=== PATIENT | female | born 1950 | race Caucasian/White ===

== ENCOUNTER 2024-11-11 19:35 | Emergency (ER) | payer MEDICARE, SELFPAY ==
[2024-11-11] VITALS (28 sets, daily range): BP systolic 134–152; BP diastolic 70–83; PULSE 58–92; RESP 8–20; TEMP 36.9; O2SAT 87–100
[2024-11-11 20:05] LABS: Glucose Point of Care 99 mg/dl (65-105)
[2024-11-11 20:58] LABS: Basophils Percent Auto 0.4 % (0.2-1.2); Eosinophils Percent Auto 0.4 % (0-4.4); Hematocrit 39.1 % (37.0-47.0); Hemoglobin 12.9 g/dL (12.0-15.0); Immature Granulocyte Absolute 0.04 K/mm3 (0.00-0.031); Immature Granulocyte Percent A 0.4 % (0-0.5); Lymphocytes Absolute Auto 1.81 K/mm3 (0.9-3.2); Lymphocytes Percent Auto 16.2 % (18.3-44.2); Mean Corpuscular Hemoglobin 29.7 pg (26-34); Mean Corpuscular Volume 90.1 fl (80-100); Mean Platelet Volume 9.6 fl (7.4-10.4); Monocytes Absolute Auto 1.3 K/mm3 (0.1-0.6); Monocytes Percent Auto 11.8 % (2.6-8.5); Neutrophils Absolute Auto 7.9 K/mm3 (1.3-6.7); Neutrophils Percent Auto 70.8 % (45.5-73.1); Platelet Count Result 263 k/mm3 (150-375); Red Blood Count 4.34 M/mm3 (4.2-5.4); White Blood Count 11.1 K/mm3 (4.5-10.0)
[2024-11-11 21:13] LABS: Alanine Aminotransferase 20 U/L (6-35); Albumin Level 4.2 g/dL (3.5-5.1); Alkaline Phosphatase 96 U/L (38-126); Anion Gap 10 mmol/L (4-12); Aspartate Amino Transferase 35 U/L (14-36); Bilirubin,Total 0.8 mg/dL (0.2-1.3); Blood Urea Nitrogen 22 mg/dL (7-17); Calcium 9.5 mg/dL (8.4-10.2); Carbon Dioxide 27 mmol/L (22-30); Chloride 99 mmol/L (98-107); Estimated CRCL calculation 61 ml/min; Estimated Glomerular Filt Rate > 60; Glucose 113 mg/dL (65-110); Lactic Acid Reflex 1.5 mmol/L (0.7-2.0); Magnesium 2.1 mg/dL (1.6-2.3); Potassium 3.8 mmol/L (3.4-5.0); Sodium 136 mmol/L (137-145)
[2024-11-11 21:34] LABS: Influenza A QL RT-PCR Negative (Negative); Influenza B QL RT-PCR Negative (Negative); RSV RNA, RT-PCR Negative (Negative); SARS-CoV-2 RNA PCR Negative (Negative)
[2024-11-11] MEDS: SODIUM CHLORIDE 0.9% IV 1,000 ML 999 ML IV CONT (22:24)
--- NOTE | 2024-11-11 22:35 | PC.NURSE ---
while obtaining straight cath the patient was actively moving all four limbs, and speaking clearly. patient stated repeatedly rebuke you in the name of chas
[2024-11-11 22:42] LABS: Add Urine Microscopic? YES; Appearance Urine Clear (Clear); Bacteria Urine None Seen /hpf; Bilirubin Urine Negative (Negative); Blood Urine 1+ (Negative); Color Urine Yellow (Yellow); Glucose Urine UA Negative (Negative); Ketones Urine 1+ mg/dL (Negative); Leukocyte Esterase Ur Negative LEU/UL (Negative); Nitrate Urine Negative (Negative); Non Pathogenic Casts 0-2; Protein Urine Trace mg/dL (Negative); Specific Grav Ur 1.044 (1.001-1.035); Squamous Epithelial Cell Urine None Seen /hpf (Few); WBC Urine 0-5 /hpf (0-3)
[2024-11-11] MEDS: SODIUM CHLORIDE 0.9% IV 1,000 ML 100 ML IV CONT (23:26)
--- NOTE | 2024-11-11 23:31 | ED.AMS ---
HPI - Altered Mental Status General Chief Complaint: Altered Mental Status Stated Complaint: ALTERED MENTAL STATUS Time Seen by Provider: 11/11/24 19:47 History of Present Illness HPI narrative: Patient is a 74-year-old female who presents to the emergency department this evening accompanied by her and 2 daughters with concern for stroke-like symptoms. Per EMS and family members, patient has past medical history of CATASIL syndrome and follows up with neurologist through [facility] at [facility]. It is unclear when patient's symptoms started, family members report that patient started complaining of a migraine headache with left-sided sensory deficit and weakness reportedly 3-4 days ago. When asked if this is new, family members state that patient 12 to get the specific neuro symptoms with her migraines which is associated with her catasil syndrome which is precipitated by dehydration and stress. Patient received some disturbing news which led her to go into an alcohol binge. Family members initially thought that the migraine was due to her being hungover and dehydrated as she drank half a bottle of whiskey on Wednesday. Upon arrival to the emergency department, patient was complaining of left sided visual deficits and family member states that this is new. Discussion with tPA with family members was initiated at this time, however, patient's daughter states that given her catasil syndrome which affects the blood vessels in the brain, her neurologist strongly advised against her ever receiving tPA as the benefits do not outweigh the risk of conversion into hemorrhagic stroke. Initially, patient was given an air score of 4 mainly due to left-sided weakness and not recalling the mom current month, however, on repeat assessment, patient is moving all 4 extremities with strong equal shovel operator strength in all extremities and intact sensation with repeat any of score of 0. Patient's speech has been clear although family member states that earlier in the evening they noticed some slurring of the speech but states that now her speech is back to her baseline. Patient is super anxious and yelling stating that she does not want to and she wants her daughter to keep her alive for ever and changes her mind son states that she does not want to stay alive for ever. She is requesting a Toradol shot for lumbar back pain. Family members did state that the patient had a fall yesterday around 11:00 p.m., patient did not hit her head. Patient does take Plavix, no aspirin or any blood thinners, just the anti-platelet according to family members. Related Data Allergies Allergy/AdvReac Type Severity Reaction Status Date / Time No Known Allergies Allergy Verified 11/12/24 00:11 Review of Systems Review of Systems: All systems are reviewed and are negative unless stated otherwise in the HPI. Exam Narrative: General: Alert, awake, afebrile, in no acute distress. HEENT: PERRL, no rhinorrhea, no post nasal drip, oropharynx clear. Neck: Trachea midline, no JVD, no lymphadenopathy. Cardiovascular: Regular rate and rhythm, no murmurs, rubs or gallops, no peripheral edema. Respiratory: Clear to auscultation bilaterally, no tachypnea, no wheezing, no rhonchi, no rubs, no respiratory distress. Abdomen: Soft, nontender, nondistended, no rebound, no guarding, no peritoneal signs. Musculoskeletal: No joint swelling or deformity, normal muscle tone. Skin: No rashes or petechia, no signs of infection. Psychiatric: Alert and oriented, normal behavior and judgment for situation. Neurological: Alert and oriented to person, place, and situation. Follows most commands, difficult to direct but is moving all 4 extremities spontaneously, withdraws to pain all 4 extremities, intact sensation in all 4 extremities, cranial nerves 2-12 grossly intact. No focal deficits appreciated at this time, speech is clear and fluent. NIH score 0. Course Vital Signs Vital signs: Vital Signs Temperature 98.4 F 11/11/24 19:35 Pulse Rate 79 11/11/24 19:35 Respiratory Rate 19 11/11/24 19:35 Blood Pressure 137/80 11/11/24 19:35 Pulse Oximetry 100 11/11/24 19:35 Oxygen Delivery Room Air 11/11/24 19:35 Temperature 98.4 F 11/11/24 19:35 Pulse Rate 70 11/12/24 03:30 Respiratory Rate 15 11/12/24 03:30 Blood Pressure 135/64 11/12/24 03:30 Pulse Oximetry 99 11/12/24 03:30 Oxygen Delivery Room Air 11/11/24 20:13 MDM - Altered Mental Status MDM Narrative Medical decision making narrative: The patient was evaluated by myself in the emergency department. History is obtained from patient who is an independent historian and physical exam was performed. External medical records were reviewed at this time. IV was established and pertinent tests were ordered. Patient was administered 15 mg of IV Toradol for lower back pain. EKG was obtained which revealed sinus rhythm at a rate of 72 beats per minute. No ST changes, T wave inversions or evidence of acute ischemia. EKG was independently interpreted by me and is currently pending official cardiology read. Laboratory results obtained revealing no acute process. Urinalysis revealed 1+ ketones and 11-20 RBCs otherwise no acute process. Viral swabs noted to be negative for COVID, influenza/RSV. Imaging studies obtained included CT brain without IV contrast and CT angiogram of the head and neck which was independently interpreted by me revealing no acute process, which is pending final radiology interpretation. Chest x-ray was also obtained of the interpreted by me revealing no acute cardiopulmonary process. CT lumbar spine without IV contrast was also obtained at this time and inability interpreted by me revealing no acute fracture or malalignment of the lumbar spine. On repeat assessment, patient is requesting eyedrops for dry and at this time artificial tears were ordered. Differential diagnosis considerations include TIA versus ischemic versus hemorrhagic stroke. Comorbidities impacting this visit include history of catasil syndrome. I have evaluated and discussed social determinants of health with the patient that could potentially impact subsequent diagnosis and treatment plans. On repeat assessment of the patient, reevaluation revealed that the patient is doing well and is in no acute distress. Patient symptoms have improved since she arrived to our emergency department. Repeat vital signs were all reviewed and noted to be stable. Differential diagnosis and treatment plan were discussed with the patient at bedside. Patient agrees with discussion and after shared medical decision making agrees with transfer to [facility] for continuity of care, Neurology evaluation and MRI. All questions were answered to the patient's satisfaction. [facility] transfer line was contacted at this time and I did speak with the on-call hospitalist over at [facility] Dr. Hendrix at [phone] who accepted admission to there neuro telemetry floor. Case was also discussed with the on-call neurologist Dr. Vega at [phone] who also accepted admission. Patient has a bed and is currently pending transport over to [facility]. Lab Data 11/11/24 20:51 11/11/24 20:51 Labs: Lab Results 11/11/24 11/11/24 11/11/24 Range/Units 20:03 20:51 22:28 WBC 11.1 H (4.5-10.0) K/mm3 RBC 4.34 (4.2-5.4) M/mm3 Hgb 12.9 (12.0-15.0) g/dL Hct 39.1 (37.0-47.0) % MCV 90.1 (80-100) fl MCH 29.7 (26-34) pg MCHC 33.0 (32-36) g/dl RDW 14.0 (11.5-14.5) % Plt Count 263 (150-375) k/mm3 MPV 9.6 (7.4-10.4) fl Immature Gran % (Auto) 0.4 (0-0.5) % Neut % (Auto) 70.8 (45.5-73.1) % Lymph % (Auto) 16.2 L (18.3-44.2) % [place] % (Auto) 11.8 H (2.6-8.5) % Eos % (Auto) 0.4 (0-4.4) % Baso % (Auto) 0.4 (0.2-1.2) % Lymph # (Auto) 1.81 (0.9-3.2) K/mm3 [place] # (Auto) 1.3 H (0.1-0.6) K/mm3 Eos # (Auto) 0.0 (0-0.3) K/mm3 Baso # (Auto) 0.0 (0.0-0.1) K/mm3 Abs Immat Gran (auto) 0.04 H (0.00-0.031) K/mm3 Absolute Neuts (auto) 7.9 H (1.3-6.7) K/mm3 Absolute Nucleated RBC 0.000 (0.0-0.012) K/mm3 Nucleated RBC % 0.0 (0.0-0.2) % Sodium 136 L (137-145) mmol/L Potassium 3.8 (3.4-5.0) mmol/L Chloride 99 (98-107) mmol/L Carbon Dioxide 27 (22-30) mmol/L Anion Gap 10 (4-12) mmol/L BUN 22 H (7-17) mg/dL Creatinine 0.64 L (0.7-1.0) mg/dL Estim Creat Clear Calc 61 ml/min Estimated GFR > 60 (59 - ) Glucose 113 H (65-110) mg/dL POC Capillary Glucose 99 (65-105) mg/dl Lactic Acid 1.5 (0.7-2.0) mmol/L Calcium 9.5 (8.4-10.2) mg/dL Magnesium 2.1 (1.6-2.3) mg/dL Total Bilirubin 0.8 (0.2-1.3) mg/dL AST 35 (14-36) U/L ALT 20 (6-35) U/L Alkaline Phosphatase 96 (38-126) U/L Total Protein 8.0 (6.3-8.2) g/dL Albumin 4.2 (3.5-5.1) g/dL Urine Color Yellow (Yellow) Urine Appearance Clear (Clear) Urine pH 6.0 (5.0-9.0) Ur Specific [place] 1.044 H (1.001-1.035) Urine Protein Trace (Negative) mg/dL Urine Glucose (UA) Negative (Negative) mg/dL Urine Ketones 1+ H (Negative) mg/dL Ur Blood (Man) 1+ H (Negative) Urine Nitrate Negative (Negative) Urine Bilirubin Negative (Negative) Urine Urobilinogen 1.0 (<2.0) mg/dL Leukocyte Esterase Rfl Negative (Negative) NIA/UL Urine RBC 11-20 H (0-2) /hpf Urine WBC 0-5 (0-3) /hpf Ur Squamous Epith Cells None seen (Few) /hpf Urine Bacteria None seen /hpf Urine Casts 0-2 Influenza A (RT-PCR) Negative (Negative) Influenza B (RT-PCR) Negative (Negative) RSV (RT-PCR) Negative (Negative) SARS-CoV-2 RNA (RT-PCR) Negative (Negative) Discharge Plan Discharge Clinical Impression: Stroke-like symptom, Fall from ground level, Lower back pain Patient Disposition: Acute Care Hospital Condition: Improved Patient Language: Czech Follow-up/Referrals: Jovan,DAVID Jc [Primary Care Provider] - Time of Disposition: 02:53
--- NOTE | 2024-11-11 23:46 | PC.NURSE ---
daughter at bedside to answer questions upon arrival to ED. asked family if during her migraines caused by CADASIL if she historically has flaccid left limbs. daughter states that this is recurrent with these episodes, and that her migraine cocktail usually helps. patient gripping with left hand, and kicking left foot, but does seem to have difficulty following commands with the left limbs. daughters at bedside repeatedly telling the patient she's had a stroke. Daughter had many different times that these symptoms started, from wednesday, at 9pm, today, and was stating that her mom has been out of it for a couple of days . Patient consistently throughout shift utilized all four limbs appropriately, was a/o x 2- 3 with confusion to the time, but not having slurred speech. Family member called this rn into the room and asked why the patients scans hadn't been read because the stroke protocol is that the patient be scanned and results back within 20 minutes. when discussed with the family member that the patient was not considered a code stroke due to conflicting and out of the window last known well, symptoms, and multiple assessments the patient did not meet the code stroke criteria. pt family member then began arguing how do we not consider her a code stroke when she is actively having strokes in your facility this rn then asked if they would like to speak to the ERP. ERP made aware and spoke with family member. patient continuously denied pain during assessments, and while asking the patient questions and assessing the patient family members were talking over this rn and other staff members, trying to answer the questions for the patient. patient family called out multiple times that the patient was losing her vision; patient was looking around at staff members in the room, and making eye contact with staff. patient repeatedly kept saying I'm in hell I have , i'm now
[2024-11-12] VITALS (36 sets, daily range): BP systolic 121–157; BP diastolic 62–99; PULSE 59–93; RESP 12–22; TEMP 36.7; O2SAT 96–100
[2024-11-12] MEDS: KETOROLAC 15 MG/ML VIAL (*BKC) IV PUSH (01:34)
--- NOTE | 2024-11-12 06:59 | PC.NURSE ---
Pt has bed at [facility], [id number]-A. Report given to Alisa FINE. Transport continues to push back on the time they will be here to take pt, current ETA is 8:30. Pt remains in stable condition.
== END 2024-11-12 08:29 | disposition short-term general hospital (02) ==
PROVIDERS: Emergency Provider Emergency Medicine; PCP Physician Assistant
DX: H53.8 Other visual disturbances (principal); R53.1 Weakness; G43.909 Migraine, unspecified, not intractable, without status migrainosus; M54.50 Low back pain, unspecified; Z20.822 Contact with and (suspected) exposure to COVID-19; I67.850 Cerebral autosomal dominant arteriopathy with subcortical infarcts and leukoencephalopathy; Z79.02 Long term (current) use of antithrombotics/antiplatelets; M47.816 Spondylosis without myelopathy or radiculopathy, lumbar region; W19.XXXA Unspecified fall, initial encounter
CPT/HCPCS: 36415; 70450; 70496; 70498; 71045; 72131; 80053; 81001; 82948; 83605; 83735; 85025; 87637; 93005; 96361; 96374; 99285; A9270; J1885; J7030; Q9967